=== PATIENT | female | born 1985 | race Hispanic/Latino ===

== ENCOUNTER 2018-08-25 14:39 | Outpatient (CLI) | payer OTHER ==
--- NOTE | 2018-08-25 15:27 | ULT ---
ULTRASOUND OB COMPLETE STANDARD: HISTORY: Anatomy. [id number], supervision of other high-risk 2nd trimester. COMPARISON: None. FINDINGS: Real-time, chavez scale, and color evaluation of the gravid uterus was performed. Single viable intrau terine with average ultrasound age 22 weeks 2 days, estimated date of delivery 12/27/2018. Estimated weight is 495 gm. ANATOMY: Head, cerebellum, cisterna magna, lateral ventricles, 4-chamber heart, stomach, kidneys, cord inserti on, bladder, cervicothoracic, lumbar sacral spine, as well as lips/nose, upper extremities, lower ext remities, and 3-vessel cord are all normal. heart rate documented at 155 b.p.m. Placenta is a nterior and position is vertex. BOBO: 16.9 cm. No placenta previa. BIOMETRY: Biparietal diameter 5.27 cm, 22 weeks 1 day Head circumference 19.58 cm, 21 weeks 6 days Cerebellum 2.14 cm, 21 weeks 4 days Abdominal circumference 17.13 cm, 22 weeks 1 day Femur length 3.97 cm, 22 weeks 6 days IMPRESSION: Single viable intrauterine . POS: [facility]
== END 2018-08-25 14:40 | disposition home or self-care (01) ==
LOC: BICULT 14:39
PROVIDERS: ATTEND Family Medicine
DX: O09.92 Supervision of high risk pregnancy, unspecified, second trimester (principal); Z3A.22 22 weeks gestation of pregnancy
CPT/HCPCS: 76805

== ENCOUNTER 2018-12-10 14:35 | Inpatient (IN) | payer MEDICAID, OTHER, SELFPAY ==
[2018-12-10] MEDS ORDERED: ePHEDrine 50 MG/ML VIAL ONE (15:03)
[2018-12-10] MEDS ORDERED: Ondansetron PF 4 MG/2 ML Vial ONE ×2 (15:03→16:11)
--- NOTE | 2018-12-10 15:22 | PDOC.LDHP ---
Labor and Delivery H&P Allergies/Adverse Reactions: Allergies Allergy/AdvReac Type Severity Reaction Status Date / Time No Known Allergies Allergy Verified 12/10/18 15:29 - Plan -: PCP: Sony HPI: This is a 33 yo at 37.5 wks by presenting for ROM. She states at 2 pm all of the sudden she noticed that her pants were soaked with fluid and the leakage has continued since that time. She denies any blood. She denies contractions. She states she feels baby moving often. Denies AHMADI, visual changes, SOB, or swelling. History: OB hx: c/s x1 2/2 failure to progress PMH: neg PSH: C/S Meds: PNV All: NKDA Soc Hx: denies smoking, alcohol, drugs Fam Hx: denies downs, congenital defects REVIEW OF SYSTEMS: Gen: no fever, chills, or sweats Neuro: no numbness/tingling, no weakness, denies headache Eyes: no visual changes ENT: no hearing changes, no sore throat, no runny nose Resp: no cough, no SOB, no wheeze Card: denies chest pain, no palpitations GI: no N/V/D, no abdominal pain : no dysuria, no hematuria MSK: no myalgias, no joint pain/stiffness Heme: no easy bruising/bleeding Skin: no rash, no erythema PHYSICAL EXAMINATION: General: NAD, alert and oriented x3 HEENT: PERRLA, EOMI, normal sclera, oropharynx without erythema or exudate Neck: Supple. Full ROM. Heart/Cardiovascular System: RRR, Cap refill < 3 seconds, no rub, no murmur Lungs/Respiratory System: clear to auscultation bilaterally. No increased work of breathing. Room air. Abdomen/Gastro-Intestinal System: no abdominal tenderness, normal bowel sounds, Gravid Extremities: Warm extremities. No cyanosis or edema. Neuro: No gross deficits appreciated. CN 2-12 grossly intact Psychiatry: Awake, Alert and cooperative with exam Skin: No lesions, rashes, or ulcers Musculoskeletal: Full ROM A/P: This is a 33 yo at 37.5 wks by presenting for ROM # Term , ROM - 1st c/s was 2/2 to failure to progress - + amnisure - Will proceed with repeat c/s
[2018-12-10 15:25] VITALS: BMI 41.5
[2018-12-10 15:27] LABS: Amnisure Test RUPTURE DETECTED (No Rupture)
[2018-12-10 15:28] LABS: Amnisure Internal Control QC ACCEPTABLE (ACCEPTABLE)
[2018-12-10] MEDS ORDERED: Ondansetron PF 4 MG/2 ML Vial IVP PRN ×3 (15:31→19:56)
[2018-12-10] MEDS ORDERED: Promethazine HCl 25 MG/ML VIAL IM PRN ×3 (15:31→19:56)
[2018-12-10] MEDS ORDERED: Bicitra 30 ML UDCUP PO SCH (15:45)
[2018-12-10] MEDS ORDERED: CEFAZOLIN 2 GM in Premix Bag 1 BAG IVPB SCH (15:45)
[2018-12-10] MEDS ORDERED: Lactated Ringer's 1,000 ML IV SCH (15:45)
[2018-12-10 15:56] LABS: Hemoglobin 13.1 g/dL (12.0-16.0); Mean Corpuscular HGB CONC 34.1 g/dL (32.0-36.0); Mean Corpuscular Hemoglobin 30.1 pg (27.0-31.0); Mean Corpuscular Volume 88.3 fL (78.0-98.0); Mean Platelet Volume 8.1 fL (7.4-10.4); Platelet Count 309 thou/uL (130-400); RBC Distribution Width 12.8 % (11.5-14.5); Red Blood Cell (RBC) Count 4.34 mill/uL (4.20-5.40); White Blood Cell (WBC) Count 8.5 thou/uL (4.8-10.8)
[2018-12-10] MEDS ORDERED: Oxytocin 10 UNITS/ML VIAL ONE ×2 (16:11→17:42)
[2018-12-10] MEDS ORDERED: MORPHINE 5 MG/10 ML PF VIAL ONE (16:11)
[2018-12-10 16:39] LABS: Syphilis Antibody Nonreactive (Nonreactive); Syphilis Antibody Index 0.05 S/CO (<1.00 Non-Reactive)
[2018-12-10 16:40] LABS: HBSAg Index 0.29 S/CO (0-0.99); Hep B Surf Ag Non-Reactive S/CO (NonReactive)
[2018-12-10] MEDS ORDERED: ePHEDrine/0.9% NaCl/PF SYRINGE 50 mg/10 ml ONE (16:51)
[2018-12-10] MEDS ORDERED: L&D-Morphine 4 MG/ML VIAL SLOW IVP PRN (17:09)
[2018-12-10] MEDS ORDERED: HYDROmorphone 2 MG/ML VIAL SLOW IVP PRN (17:09)
[2018-12-10] MEDS ORDERED: Ondansetron HCl/PF 4 MG/2 ML Vial IVP PRN (17:09)
[2018-12-10] MEDS ORDERED: Meperidine HCl/PF 25 MG/ML VIAL SLOW IVP PRN (17:09)
[2018-12-10] MEDS ORDERED: diphenhydrAMINE 50 MG/ML VIAL IVP PRN (17:10)
[2018-12-10] MEDS ORDERED: Promethazine HCl 25 MG SUPP PR PRN (17:10)
[2018-12-10] MEDS ORDERED: Naloxone HCl 0.4 mg/ml Vial IV PRN (17:10)
[2018-12-10] MEDS ORDERED: Ketorolac Tromethamine 30 MG/ML VIAL IVP PRN (17:10)
[2018-12-10] MEDS ORDERED: Naloxone HCl 0.4 mg/ml Vial IVP PRN ×2 (17:10)
[2018-12-10] MEDS ORDERED: Ketorolac Tromethamine 30 MG/ML VIAL IVP SCH (17:15)
[2018-12-10] MEDS ORDERED: Communication Order-Pharmacy FS SCH (17:15)
--- NOTE | 2018-12-10 18:17 | PDOC.OPDEL ---
OB Operative/Delivery Note - Additional Findings/Plan Compilations/Other Findings: Procedure Note Date of Procedure: 12/10/18 Resident Surgeon: Dr. Colby Colbert Attending Surgeon: Dr. Shyam Cardoza Procedure: Repeat low transverse caesarean section Preoperative Diagnosis: 1) Term intrauterine 2) Premature Rupture of Membranes 3) Labor 4) Previous c/s x1 Postoperative Diagnosis: 1) Term Intrauterine , delivered 2) Large uterine window, thin lower segment Anesthesia: spinal Indications: The patient is a 33 year old G2,P1 female at 37.5 weeks presenting for rupture of membranes 1 hour before arrival, she developed contractions while in triage. Procedure in Detail: After risks, benefits, and alternatives were explained to the patient, she gave informed consent. Pre-operative antibiotics included Cefazolin 2 gram IV. The patient was taken to the operating room and epidural anesthesia was found to be sufficient. She was placed in the supine position with a left tilt and prepped and draped in usual sterile fashion. A Pfannenstiel incision was made with a scalpel and carried down to the level of the fascia which was sharply nicked. The fascial cut was extended bilaterally with Linton scissors. The inferior and superior edges of the cut fascial edges were elevated with Shlomo clamps and the underlying rectus muscles were sharply and bluntly dissected free. The recti were divided digitally and retracted manually. Rectal fascia was divided using scissors and hemostats. The peritoneum was entered bluntly and retracted manually. Bladder blade was placed. Upon entering the abdomen a large bulging intact uterine window was noted. A low transverse score was carefully made with the scalpel into the window. Clear fluid was seen. The was noted to be vertex and was delivered by fundal pressure. Mouth and nares were bulb suctioned. Cord clamped and cut and grossly normal male infant was handed to waiting nurse. Cord blood was obtained. Placenta was manually extracted, found to be intact with 3 vessel cord and discarded. The uterus was externalized and the endometrium was curetted with a dry lap. The bladder blade was replaced and the uterus was closed with a running locking 0-Vicryl, the lower segment was pulled caudad using O-ring forceps. An imbricating layer of 0 chromic was then placed. 1 figure of eight knot of 0-Vicryl were placed after this. Following this hemostasis was noted. The abdomen was irrigated with saline and suctioned free of clots. The uterus was internalized and the hysterotomy was again noted to be hemostatic. The peritoneum was closed using 3-0 vicryl in a running non-locking fashion. One running non-locking run of 3-0 vicryl was placed in the rectus muscle for hemostasis. The fascia was closed with a running non-locking 0-PDS suture. The subcutaneous tissue was irrigated and there were no bleeders. The subcutaneous layer was approximated with 3 simple interrupted knots of 3-0 vicryl. The skin was approximated with chris and a pressure dressing was placed. All counts were correct. The patient tolerated the procedure well and was taken to the recovery room in stable condition. Quantitative Blood Loss: 840ml Complications: Large uterine window Specimens: Cord blood sent to lab for blood type Findings: Grossly normal male . Grossly normal placenta with 3 vessel cord sent to pathology. Drains: Zabala to gravity draining clear urine
[2018-12-10] MEDS ORDERED: NS / Oxytocin 40 units/1000ml 1,000 ML IV SCH (19:56)
[2018-12-10] MEDS ORDERED: Bisacodyl 10 MG SUPP PR PRN (19:56)
[2018-12-10] MEDS ORDERED: Zolpidem Tartrate 5 MG TAB PO PRN (19:56)
[2018-12-10] MEDS ORDERED: diphenhydrAMINE 25 MG CAP PO PRN (19:56)
[2018-12-10] MEDS ORDERED: Lanolin Ointment 7 GM TUBE TOP PRN (19:56)
[2018-12-10] MEDS ORDERED: Ibuprofen 800 MG TAB PO SCH (22:00)
[2018-12-11] MEDS: Ketorolac Tromethamine 30 MG/ML VIAL IVP PRN ×2 (00:10→06:13)
[2018-12-11] MEDS: Docusate Calcium (SURFAK) 240 MG CAP PO SCH ×3 (00:23→21:22)
[2018-12-11] MEDS: Ferrous Sulfate 325 MG TAB PO SCH ×3 (00:24→21:50)
[2018-12-11] MEDS ORDERED: Meperidine HCl/PF 25 MG/ML VIAL IM PRN (05:15)
[2018-12-11] MEDS ORDERED: HYDROcodone/Acetaminophen 5/325 mg Tablet PO PRN (05:15)
[2018-12-11] MEDS ORDERED: Sodium Chloride 0.9% 10 ML ONE (06:07)
[2018-12-11 06:24] LABS: Hemoglobin 11.7 g/dL (12.0-16.0); Mean Corpuscular HGB CONC 34.6 g/dL (32.0-36.0); Mean Corpuscular Hemoglobin 30.5 pg (27.0-31.0); Mean Corpuscular Volume 88.1 fL (78.0-98.0); Mean Platelet Volume 8.1 fL (7.4-10.4); Platelet Count 244 thou/uL (130-400); RBC Distribution Width 12.8 % (11.5-14.5); Red Blood Cell (RBC) Count 3.83 mill/uL (4.20-5.40); White Blood Cell (WBC) Count 10.8 thou/uL (4.8-10.8)
[2018-12-11] MEDS: Prenatal Vitamin 1 TAB PO SCH (09:18)
[2018-12-11] MEDS: HYDROcodone/Acetaminophen 5/325 mg Tablet PO PRN ×3 (12:30→21:22)
[2018-12-11] MEDS: Simethicone Chewable 80 MG TAB PO PRN ×2 (12:31→21:21)
[2018-12-12] MEDS: Simethicone Chewable 80 MG TAB PO PRN ×3 (03:11→21:40)
[2018-12-12] MEDS: HYDROcodone/Acetaminophen 5/325 mg Tablet PO PRN ×5 (03:11→21:41)
[2018-12-12] MEDS: Docusate Calcium (SURFAK) 240 MG CAP PO SCH ×2 (08:30→21:40)
[2018-12-12] MEDS: Prenatal Vitamin 1 TAB PO SCH (08:31)
[2018-12-12] MEDS: Ferrous Sulfate 325 MG TAB PO SCH ×2 (08:32→23:09)
[2018-12-13] MEDS: Docusate Calcium (SURFAK) 240 MG CAP PO SCH (08:40)
[2018-12-13] MEDS: Prenatal Vitamin 1 TAB PO SCH (08:40)
[2018-12-13] MEDS: HYDROcodone/Acetaminophen 5/325 mg Tablet PO PRN (08:41)
[2018-12-13 09:12] VITALS: BP 137/82; TEMP 97.9
[2018-12-13] MEDS: Ferrous Sulfate 325 MG TAB PO SCH (09:49)
== END 2018-12-13 12:20 | disposition home or self-care (01) | DRG 788 ==
LOC: L&D/OP 14:35 → L&D 15:45 → 3SW 20:27
PROVIDERS: ADMIT Family Medicine; ATTEND Family Medicine
PROC: 10D00Z1 Extraction of Products of Conception, Low, Open Approach (ICD-10-PCS; principal; 2018-12-10)
DX: O42.92 Full-term premature rupture of membranes, unspecified as to length of time between rupture and onset of labor (principal); Z3A.37 37 weeks gestation of pregnancy; Z37.0 Single live birth; O34.211 Maternal care for low transverse scar from previous cesarean delivery; O94 Sequelae of complication of pregnancy, childbirth, and the puerperium
CPT/HCPCS: 36415; 51702; 84112; 85027; 86780; 86850; 86870; 86900; 86901; 86905; 87340; 88307; 99285; J0690; J1200; J1885; J2175; J2270; J2405; J2590; J3490